=== PATIENT | male | born 1960 | race Caucasian/White ===

== ENCOUNTER → 2016-11-29 | Outpatient (CLI) | payer OTHER ==
[~2016-11-29] VITALS: Ht 167.6 cm; Wt 90.7 kg
[~2016-11-29] MED LIST: AMITRIPTYLINE PO; BACLOFEN 10 MG; GABA-113 PO; OXYC-57 PO; OXYC-643 PO; POTASSIUM PO
[2016-11-29 12:39] VITALS: Ht 167.6 cm; Wt 90.7 kg
[2016-11-29 12:51] LABS: BASO % 0.3 %; BASO ABS # 0.03 K/uL (0-0.2); COMPLETE YES; EOS % 0.8 %; HEMATOCRIT 44.1 % (42-52); IG% 0.2 %; LYMPH % 33.3 %; LYMPH ABS # 3.55 K/uL (1.2-3.4); MEAN CELL VOLUME 93.8 fL (80-100); MEAN CORPUSCULAR HEMOGLOBIN 32.6 pg (25-34); MEAN CORPUSCULAR HGB CONC 34.7 g/dl (32-36); MEAN PLATELET VOLUME 10.7 fL (7.4-10.4); MONO % 5.2 %; NEUT % 60.2 %; PLATELET COUNT 219 K/uL (130-400); WHITE BLOOD COUNT 10.65 K/uL (4.8-10.8)
--- NOTE | 2016-11-29 13:11 | PAT Medication Instructions ---
Service Date Nov 29, 2016. Current Home Medication List Gabapentin (Neurontin), 600 MG PO BID Gabapentin (Neurontin), 1,200 MG PO HS Oxycodone/Acetaminophen 5MG/325MG (Oxycodone/Acetaminophen 5MG/325MG), 1 TABLET PO BID [Amitriptyline], 1 TAB PO HS [Potassium], 1 TAB PO QAM Medication Instructions For Your Scheduled Surgery - Hold the following medications the morning of surgery: [Potassium], 1 TAB PO QAM - Take the following medications the morning of surgery with a sip of water: Gabapentin (Neurontin), 600 MG PO BID Oxycodone/Acetaminophen 5MG/325MG (Oxycodone/Acetaminophen 5MG/325MG), 1 TABLET PO BID (okay to take up to 4 hours prior to surgery) - Take the following medications as scheduled the night before surgery: [Amitriptyline], 1 TAB PO HS Gabapentin (Neurontin), 1,200 MG PO HS Gabapentin (Neurontin), 600 MG PO BID Oxycodone/Acetaminophen 5MG/325MG (Oxycodone/Acetaminophen 5MG/325MG), 1 TABLET PO BID If you have any questions please call us at [phone] or [phone] or [phone]
[2016-11-29 13:39] LABS: URINE APPEARANCE CLEAR (CLEAR); URINE BILIRUBIN NEG (NEG); URINE COLOR YELLOW; URINE NITRITE NEG (NEG); URINE SPECIFIC GRAVITY 1.012 (1.000-1.030); UROBILINOGEN NEG (NEG)
--- NOTE | 2016-11-29 13:39 | DIAGNOSTIC IMAGING REPORT ---
CHEST PREADMISSION(PA/LAT) HISTORY:56 yearsMalepreoperative exam. COMPARISON: Chest radiograph 01/02/2013. TECHNIQUE: Frontal and lateral views of the chest. FINDINGS: The cardiomediastinal and hilar silhouettes are within normal limits. There is no pneumothorax, pleural effusion or focal airspace consolidation. Lungs are mildly hyperinflated. Bones appear grossly intact. End plate spurring is seen at several levels within the thoracic spine. IMPRESSION: No acute cardiopulmonary process. The above report was generated using voice recognition software. It may contain grammatical, syntax or spelling errors. Electronically signed by: Lukas Ceja M.D. 11/29/2016 1:38 PM Dictated Date/Time: 11/29/2016 1:37 PM
--- NOTE | 2016-11-29 13:43 | DIAGNOSTIC IMAGING REPORT ---
C-SPINE ROUTINE 4 OR 5 VIEWS HISTORY:56 yearsMalePAT preoperative exam. History of spinal stenosis. COMPARISON: None available. TECHNIQUE: AP, lateral neutral, flexion and extension views of the cervical spine. FINDINGS: The seventh vertebral segment is not well seen secondary to overlying soft tissue from the patient's shoulder. Nuchal ligament calcifications are incidentally noted. No acute fracture or dislocation is identified. Intervertebral disc space narrowing seen most prominently at the C3-C4, C4-C5 and C5-C6 levels. Multilevel uncovertebral spurring and facet arthropathy is also noted. No significant subluxation is seen with the flexion and extension views to suggest instability. No prevertebral soft tissue swelling or radiopaque foreign body. Imaged lung apices are clear. IMPRESSION: 1. No acute bony abnormality. 2. Intervertebral disc space narrowing is seen most prominently at the C3-C4 through C5-C6 levels. No change in alignment with flexion or extension. The above report was generated using voice recognition software. It may contain grammatical, syntax or spelling errors. Electronically signed by: Lukas Ceja M.D. 11/29/2016 1:41 PM Dictated Date/Time: 11/29/2016 1:38 PM
[2016-11-29 13:45] LABS: MANUAL MICROSCOPIC REQUIRED? NO; REVIEW REQ? NO
[2016-11-29 14:35] LABS: BUN/CREATININE RATIO 14.8 (10-20); CALCIUM 9.2 mg/dl (8.5-10.1); CREATININE 0.88 mg/dl (0.60-1.40)
== END | disposition home or self-care (01) ==
LOC: C.LAB 08:00 → C.ACU 11:57 → EDSTATUS 12-07 11:15
PROVIDERS: ATTEND Orthopaedic Surgery Orthopaedic Surgery of the Spine
DX: Z01.811 Encounter for preprocedural respiratory examination (principal); Z01.810 Encounter for preprocedural cardiovascular examination; Z01.812 Encounter for preprocedural laboratory examination; M50.31 Other cervical disc degeneration, high cervical region; M50.321 Other cervical disc degeneration at C4-C5 level; M50.322 Other cervical disc degeneration at C5-C6 level